=== PATIENT | male | born 1955 | race Caucasian/White ===

== ENCOUNTER 2024-06-11 10:13 | Emergency (ER) | payer MEDICARE, BC ==
[~2024-06-11] VITALS: Ht 177.8 cm; Wt 117.3 kg
[2024-06-11 10:42] VITALS: TEMP 97.1
[2024-06-11 11:03] LABS: BASO # 0.1 10^3/uL (0.0-0.2); BASO % 0.5 % (0.0-1.0); EOS # 0.1 10^3/uL (0.0-0.5); EOS % 0.9 % (0.0-3.0); HEMATOCRIT 45.7 % (42.0-52.0); HEMOGLOBIN 15.1 g/dl (13.5-17.5); LYMPH # 2.5 10^3/uL (1.5-5.0); LYMPH % 23.8 % (24.0-44.0); MEAN CORPUSCULAR VOLUME 90.7 fl (80.0-96.0); MONO # 0.9 10^3/uL (0.0-0.8); MONO % 8.5 % (2.0-8.0); NEUTROPHILS % 65.9 % (36.0-66.0); PLATELET COUNT, AUTOMATED 279 10^3/uL (150-450); RED BLOOD COUNT 5.04 10^6/uL (4.30-6.10); WHITE BLOOD COUNT 10.6 10^3/uL (4.0-10.0)
[2024-06-11] MEDS: NS 500 ML IV ONE (11:05)
[2024-06-11 11:14] LABS: INR 1.05; PARTIAL THROMBOPLASTIN TIME 29.7 SECONDS (24.8-34.2)
[2024-06-11 11:27] LABS: LIPASE 32 U/L (12-53)
[2024-06-11 11:29] LABS: ALBUMIN 3.4 G/DL (3.2-5.2); ALKALINE PHOSPHATASE 105 U/L (40-129); ALT/SGPT 59 U/L (7.0-40); AST/SGOT 25 U/L (<34); BILIRUBIN,DIRECT 0.2 MG/DL (<0.4); BILIRUBIN,TOTAL 0.6 MG/DL (0.3-1.2); BLOOD UREA NITROGEN 19 MG/DL (9-23); CALCIUM LEVEL 8.5 MG/DL (8.3-10.6); CARBON DIOXIDE LEVEL 30 MMOL/L (20-31); CHLORIDE LEVEL 105 MMOL/L (98-107); CK-MB VALUE MASS < 1.0 NG/ML (<3.6); CREATININE FOR GFR 0.93 MG/DL (0.70-1.30); GLOMERULAR FILTRATION RATE > 60.0 (>49); GLUCOSE, FASTING 175 MG/DL (74-106); POTASSIUM SERUM 4.3 MMOL/L (3.5-5.1); SODIUM LEVEL 142 MMOL/L (136-145); TOTAL PROTEIN 6.3 G/DL (5.7-8.2)
[2024-06-11 11:32] LABS: THYROID STIMULATING HORMONE 2.079 uIU/ML (0.55-4.78)
[2024-06-11 11:36] LABS: CPK CREATINE PHOSPHOKINASE 83 U/L (46-171)
[2024-06-11] MEDS: MIDAZOLAM INJ 2MG/2ML VIAL IV STA ×2 (11:42→11:48)
[2024-06-11] MEDS: fentaNYL 100 MCG/2 ML INJECTION IV ONE ×2 (11:42→11:55)
[2024-06-11 12:43] LABS: CK-MB VALUE MASS < 1.0 NG/ML (<3.6)
[2024-06-11 12:44] LABS: CPK CREATINE PHOSPHOKINASE 71 U/L (46-171)
[2024-06-11 13:00] VITALS: O2SAT 98
[2024-06-11 13:05] VITALS: BP 101/65
== END 2024-06-11 13:55 | disposition home or self-care (01) ==
LOC: M ED 10:13
DX: I48.91 Unspecified atrial fibrillation (principal); E11.9 Type 2 diabetes mellitus without complications; I10 Essential (primary) hypertension; Z88.2 Allergy status to sulfonamides; F17.200 Nicotine dependence, unspecified, uncomplicated
CPT/HCPCS: 71045; 80047; 80048; 80076; 82550; 82553; 83690; 83735; 84439; 84443; 84484; 85025; 85610; 85730; 93005; 93041; 94760; 96374; 96375; 99152; 99285; J2250; J3010